=== PATIENT | male | born 1930 | race African-American/Black ===

== ENCOUNTER 2017-10-10 13:18 | Emergency (ER) | payer OTHER ==
--- NOTE | 2017-10-10 14:06 | PDOC ---
*Physical Exam - Vital Signs Last Vital Signs Temp Pulse Resp BP Pulse Ox 97.7 F 84 18 141/71 100 10/10/17 13:29 10/10/17 13:29 10/10/17 13:29 10/10/17 13:29 10/10/17 13:29 Heart Score/ECG Review - History History: Moderately suspicious - Electrocardiogram EKG: Non specific repolarization disturbance - Age Age: >/= 65 - Risk Factors Risk Factors Heart Score: Yes Hx Hypercholesterolemia, Yes Hx Hypertension, Yes Hx Diabetes Based on the list above the patient has:: >/=3 risk factors or Hx atherosclerotic disease - Troponin Troponin: </= normal limit - Score Heart Score - Total: 6 ED Treatment Course - LABORATORY CBC & Chemistry Diagram: 10/10/17 14:50 10/10/17 14:50 Medical Decision Making - Medical Decision Making 10/10/17 14:03 Mr. Ventura is an 86-year-old male who presents emergency department from [facility] due to complaints of chest pain. He works in the kitchen at [employer] While at work he developed chest pressure Currently chest pain free No prior episodes like this No recent stress testing Patient is slow to respond to questioning and was thought to be altered. EKG: Normal sinus rhythm, left axis deviation, no ST elevations, T waves are upright,? Prominence in precordial leads No pathological Q waves T wave inversion V2 Pt seen by Midlevel Provider under my direct supervision Pt interviewed and examined Ancillary studies reviewed I agree with plan as outlined by Midlevel Provider Pt refusing to stay in the hospital for observation stay 10/10/17 15:05 10/10/17 18:17 I've had a long conversation with this patient He states he does not want to stay in the hospital overnight. He is refusing hospital admission. He states he does not want to stay in [place]. I've explained that the reason for keeping him here is to more closely evaluate his chest pain which occurred earlier, even with a normal first set of labs, sometimes repeat labs can be abnormal. Patient has a follow up immediately with his primary care physician. Abdomen explained that he will need to follow up with a heel compressor as well. Note: The patient insists on leaving the emergency dept and is signing out against medical advice. The patient understands the risks and complications that may result from the refusal of medical care and admission which includes and permanent disability. The patient has the mental capacity of understanding the risks of refusing care and is capable of making an informed decision. The patient was instructed to return to the emergency department should he change his mind regarding medical care or should his condition worsen. The patient signed the Against Medical Advice form. *DC/Admit/Observation/Transfer Diagnosis at time of Disposition: Chest pain Qualifiers: Chest pain type: unspecified Qualified Code(s): R07.9 - Chest pain, unspecified - Discharge Dispostion Disposition: AGAINST MEDICAL ADVICE Condition at time of disposition: Fair Decision to Admit order: No - Referrals - Patient Instructions Printed Discharge Instructions: DI for Chest Pain Additional Instructions: Mr Ventura Thank you for coming in to the ER today I think that you should further evaluate your chest pain I would like you to follow up with your primary care physician within 2 days YOU need to see a heel compressor You MUST return to the ER immediately and at any time for any new symptoms - Post Discharge Activity Forms/Work/School Notes: Back to Work
[2017-10-10 14:17] VITALS: BMI 24.4
[2017-10-10] MEDS ORDERED: ASPIRIN 325 MG TABLET PO ONE (14:28)
--- NOTE | 2017-10-10 14:28 | PDOC ---
History of Present Illness - General Chief Complaint: Altered Mental Status Stated Complaint: ALTERED MENTAL STATUS Time Seen by Provider: 10/10/17 13:58 History Source: Patient - History of Present Illness Presenting Symptoms: Chest Pain Past History - Past Medical History Allergies/Adverse Reactions: Allergies Allergy/AdvReac Type Severity Reaction Status Date / Time No Known Allergies Allergy Verified 10/10/17 13:42 Home Medications: Ambulatory Orders Unobtainable [Unobtainable] 10/10/17 Anemia: No Cancer: No COPD: No Dementia: No Diabetes: Yes GI Disorders: No HTN: Yes Kidney Stones: No Thyroid Disease: No Lung CA: No - Surgical History Abdominal Surgery: No Cholecystectomy: No Neurologic Surgery: No - Immunization History Immunization Up to Date: No - Suicide/Smoking/Psychosocial Hx Smoking History: Unknown if ever smoked Have you smoked in the past 12 months: No Information on smoking cessation initiated: No Hx Alcohol Use: No Drug/Substance Use Hx: No Substance Use Type: None Cardiac Specific PMH - Complaint Specific PMHX Myocardial Infarction: No Review of Systems - Review of Systems Constitutional: No: Chills, Fever Respiratory: Yes: Shortness of Breath. No: Cough Cardiac (ROS): Yes: Chest Pain. No: Lightheadedness, Palpitations, Syncope ABD/GI: No: Nausea, Vomiting *Physical Exam - Vital Signs Last Vital Signs Temp Pulse Resp BP Pulse Ox 97.8 F 64 16 135/72 98 10/10/17 17:35 10/10/17 17:35 10/10/17 17:35 10/10/17 17:35 10/10/17 17:35 - Physical Exam General Appearance: Yes: Appropriately Dressed. No: Apparent Distress HEENT: positive: Normal Voice Neck: positive: Supple Respiratory/Chest: positive: Lungs Clear, Normal Breath Sounds. negative: Respiratory Distress Cardiovascular: positive: Regular Rate, S1, S2 Gastrointestinal/Abdominal: positive: Soft. negative: Tender Extremity: negative: Pedal Edema, Swelling Integumentary: positive: Dry, Warm Neurologic: positive: Fully Oriented, Alert, Normal Mood/Affect Heart Score/ECG Review - History History: Slightly suspicious - Electrocardiogram EKG: Normal - Age Age: >/= 65 - Risk Factors Risk Factors Heart Score: Yes Hx Hypertension, Yes Hx Diabetes Based on the list above the patient has:: >/=3 risk factors or Hx atherosclerotic disease - Troponin Troponin: </= normal limit - Score Heart Score - Total: 4 - ECG Intrepretation Comment:: 10/10/17 14:28 Twelve-lead EKG was performed and reviewed by me. There is normal sinus rhythm with a normal rate. The axis is normal. The intervals are normal. There are no ST or T wave abnormalities. Impression: Normal twelve-lead EKG ED Treatment Course - LABORATORY CBC & Chemistry Diagram: 10/10/17 14:50 10/10/17 14:50 - ADDITIONAL ORDERS Additional order review: 10/10/17 10/10/17 14:50 13:33 RBC 4.91 MCV 88.9 MCHC 32.5 RDW 14.0 MPV 7.5 Neutrophils % 71.9 Lymphocytes % 17.0 Monocytes % 8.8 Eosinophils % 1.7 Basophils % 0.6 POC Glucometer [id number] - RADIOLOGY Radiology Studies Ordered: Category Date Time Status CHEST X-RAY PORTABLE* [RAD] Stat Radiology 10/10/17 13:58 Completed - Medications Given in the ED: ED Medications Discontinued Medications Generic Name Dose Route Start Last Admin Trade Name Freq PRN Reason Stop Dose Admin Aspirin 325 mg 10/10/17 14:28 10/10/17 15:08 Asa - PO 10/10/17 14:29 Not Given ONCE ONE Medical Decision Making - Medical Decision Making 10/10/17 14:19 86-year-old male history of hypertension, insulin-dependent diabetes, no recent cardiac workup here with chest pain. 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 + shortness of breath. No nausea, vomiting, diaphoresis, dizziness or syncope. No palpitations, leg pain or swelling. Denies history of previous chest pain. Resides in [place] and [facility] is located in [place]. 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 and as mentioned above has not had any recent cardiac workup recently See exam CP R/o ACS, less likely PE, dissection or PNA -asa -ekg -cxr -labs -m/l will need at least obs admission given high heart score *DC/Admit/Observation/Transfer Diagnosis at time of Disposition: Chest pain - Discharge Dispostion Disposition: AGAINST MEDICAL ADVICE Condition at time of disposition: Fair - Referrals - Patient Instructions Printed Discharge Instructions: DI for Chest Pain Additional Instructions: Mr Ventura Thank you for coming in to the ER today I think that you should further evaluate your chest pain I would like you to follow up with your primary care physician within 2 days YOU need to see a tool operator You MUST return to the ER immediately and at any time for any new symptoms - Post Discharge Activity Forms/Work/School Notes: Back to Work
[2017-10-10 14:59] LABS: BASO % 0.6 % (0-2.0); EOS % 1.7 % (0-4.5); HEMATOCRIT 43.7 % (35.4-49); HEMOGLOBIN 14.2 GM/dL (11.7-16.9); MCH 28.9 pg (25.7-33.7); MCHC 32.5 g/dl (32.0-35.9); MEAN CELL VOLUME 88.9 fl (80-96); MEAN PLT VOLUME 7.5 fl (7.5-11.1); MONO % 8.8 % (3.8-10.2); NEUT % 71.9 % (42.8-82.8); PLATELET COUNT 265 K/MM3 (134-434); RBC 4.91 M/mm3 (4.00-5.60); WHITE BLOOD COUNT 6.5 K/mm3 (4.0-10.0)
--- NOTE | 2017-10-10 15:03 | EKG ---
Test Reason : Blood Pressure : / mmHG Vent. Rate : 076 BPM Atrial Rate : 076 BPM P-R Int : 148 ms QRS Dur : 086 ms QT Int : 378 ms P-R-T Axes : -29 -54 055 degrees QTc Int : 425 ms NORMAL SINUS RHYTHM LEFT AXIS DEVIATION SEPTAL INFARCT , AGE UNDETERMINED ABNORMAL ECG NO PREVIOUS ECGS AVAILABLE Confirmed by MAGGIE STRICKLAND MD ([id number]) on 10/10/2017 3:02:30 PM Referred By: Confirmed By:MAGGIE STRICKLAND MD
[2017-10-10 15:06] LABS: URINE APPEARANCE CLEAR; URINE BILIRUBIN NEGATIVE (<2.0 mg/dL); URINE COLOR LTYELLOW; URINE GLUCOSE (UA) NEGATIVE (NEGATIVE); URINE KETONE NEGATIVE (NEGATIVE); URINE LEUK ESTERASE NEGATIVE (NEGATIVE); URINE NITRITE NEGATIVE (NEGATIVE); URINE UROBILINOGEN NEGATIVE mg/dL (0.2-1.0)
[2017-10-10 15:07] LABS: URINE PROTEIN 2+ (NEGATIVE)
[2017-10-10 15:09] LABS: URINE HYALINE CAST 1 /lpf
[2017-10-10 15:28] LABS: ALBUMIN 3.6 g/dl (3.4-5.0); ANION GAP 8 (8-16); BILIRUBIN,TOTAL 0.4 mg/dL (0.2-1.0); BLOOD UREA NITROGEN 25 mg/dL (7-18); CALCIUM 8.6 mg/dL (8.5-10.1); CHLORIDE 106 mmol/L (98-107); CO2 26 mmol/L (21-32); CREATININE 1.7 mg/dL (0.7-1.3); GLUCOSE,RANDOM 102 mg/dL (74-106); POTASSIUM 4.3 mmol/L (3.5-5.1); SGOT/AST 18 U/L (15-37); SGPT/ALT 16 U/L (12-78); SODIUM 140 mmol/L (136-145); TOT PROT 6.9 g/dl (6.4-8.2)
[2017-10-10 15:31] LABS: ALK PHOS 79 U/L (45-117)
[2017-10-10 17:37] VITALS: BP 135/72; PULSE 64; TEMP 97.8
== END 2017-10-10 19:10 | disposition left against medical advice (07) ==
LOC: JER 13:18
DX: R07.9 Chest pain, unspecified (principal); E78.00 Pure hypercholesterolemia, unspecified; E11.9 Type 2 diabetes mellitus without complications
CPT/HCPCS: 36415; 71045-TC-FY; 80053; 81003; 81015; 82550; 82553; 82962; 84484; 85025; 93005; 93010; 99283-25